=== PATIENT | male | born 1945 | race Caucasian/White ===

== ENCOUNTER → 2020-07-21 | Outpatient (CLI) | payer OTHER ==
[~2020-07-21] MED LIST: AMLODIPINE BESYL5 MG PO; AMOXICILLIN 50500 M1 PO; AMOXICILLIN 50500 MG PO; ASPIRIN EC81 M1 PO; B-100 COMPLEX1 EAC1 PO; CARDIZEM CD 18180 M3 PO; CO Q-10200 MG PO; DUONEB 2.5-0.5 M3 ML INH; FOLIC ACID0.8 MG PO; GINKGO BILOBA120 M1 PO; GLUCOPHAGE500 MG PO; GLUCOSAMIN-CHO1 EACH PO; HYDROCHLOROTHIA25 M1 PO; KEFLEX500 MG PO; L-ARGININE1000 MG PO; LISINOPRIL20 MG PO; MOBIC15 MG PO; MUCINEX600 MG PO; MULTAQ400 MG PO; MULTIVITAMINS1 EAC7 PO; NIACIN ER1000 MG PO; PLAVIX 75 MG TA75 M1 PO; PRAVASTATIN SOD20 MG PO; PREDNISONE 10 M10 M1 PO; PREDNISONE50 MG PO; PROAIR HFA8.5 GM IH; PROAIR HFA8.5 GM INH; RED YEAST RICE600 MG PO; SPIRIVA INH; SYMBICORT80 MCG/4.1 PO; TOPROL XL50 MG PO; VITAMIN D-32000 UNIT PO; VITAMIN E1000 UNI3 PO; VITAMINC500 PO; ZPAK PO
== END ==
LOC: M.WC 08:00
PROVIDERS: ATTEND Surgery
DX: E11.621 Type 2 diabetes mellitus with foot ulcer (principal); L97.522 Non-pressure chronic ulcer of other part of left foot with fat layer exposed; L84 Corns and callosities; E11.39 Type 2 diabetes mellitus with other diabetic ophthalmic complication; H42 Glaucoma in diseases classified elsewhere; E11.36 Type 2 diabetes mellitus with diabetic cataract; E11.40 Type 2 diabetes mellitus with diabetic neuropathy, unspecified; G47.30 Sleep apnea, unspecified; I10 Essential (primary) hypertension; I25.2 Old myocardial infarction; I48.91 Unspecified atrial fibrillation; J44.9 Chronic obstructive pulmonary disease, unspecified; M48.00 Spinal stenosis, site unspecified; Z79.84 Long term (current) use of oral hypoglycemic drugs; Z87.891 Personal history of nicotine dependence; Z96.653 Presence of artificial knee joint, bilateral; Z95.828 Presence of other vascular implants and grafts

== ENCOUNTER → 2020-07-28 | Outpatient (CLI) | payer OTHER | LOC: M.WC 08:40 | PROVIDERS: ATTEND Surgery | DX: E11.621 Type 2 diabetes mellitus with foot ulcer (principal); L97.522 Non-pressure chronic ulcer of other part of left foot with fat layer exposed; L84 Corns and callosities; E11.39 Type 2 diabetes mellitus with other diabetic ophthalmic complication; H42 Glaucoma in diseases classified elsewhere; E11.36 Type 2 diabetes mellitus with diabetic cataract; E11.40 Type 2 diabetes mellitus with diabetic neuropathy, unspecified; G47.30 Sleep apnea, unspecified; I10 Essential (primary) hypertension; I25.2 Old myocardial infarction; I48.91 Unspecified atrial fibrillation; J44.9 Chronic obstructive pulmonary disease, unspecified; M48.00 Spinal stenosis, site unspecified; Z79.84 Long term (current) use of oral hypoglycemic drugs; Z87.891 Personal history of nicotine dependence; Z96.653 Presence of artificial knee joint, bilateral; Z95.828 Presence of other vascular implants and grafts ==